=== PATIENT | male | born 1950 | race Caucasian/White ===

== ENCOUNTER 2016-04-21 06:21 | Day surgery (SDC) | payer MEDICARE, OTHER ==
[~2016-04-21] VITALS: Ht 180.3 cm; Wt 102.0 kg
[2016-04-21] VITALS (7 sets, daily range): BP systolic 97–137; BP diastolic 47–71; PULSE 53–63; TEMP 97.6–99.1
[~2016-04-21 06:21] MED LIST: AMOXICILLIN/CLA1 TA1 PO; BACTRIM DS 8001 TAB PO; CHOLESTEROL; CLEOCIN HC150 MG/CAP PO; FORT1000TA PO; ONGLYZA5 MG PO; ORAL DIABETES MED; PRINIVIL10 MG PO; SYNTHROID PO; SYNTHROID0.137 MG PO; ZOCOR 40MG40 MG PO
[2016-04-21] MEDS ORDERED: ONGLYZA5 MG PO (07:29)
[2016-04-21] MEDS ORDERED: ASPIRIN E.C. 8181 MG PO (07:29)
[2016-04-21] MEDS ORDERED: K-DUR 10 MEQ T10 MEQ PO (07:30)
[2016-04-21] MEDS ORDERED: NORCO 325 MG-7.1 TAB PO (09:32)
== END 2016-04-21 11:55 | disposition home or self-care (01) ==
LOC: SDCO 06:21
DX: K40.90 Unilateral inguinal hernia, without obstruction or gangrene, not specified as recurrent (principal); F17.200 Nicotine dependence, unspecified, uncomplicated; E11.9 Type 2 diabetes mellitus without complications; E03.9 Hypothyroidism, unspecified; I10 Essential (primary) hypertension; Z79.899 Other long term (current) drug therapy; Z79.84 Long term (current) use of oral hypoglycemic drugs; Z79.82 Long term (current) use of aspirin
CPT/HCPCS: C1781; J0690; J2704; J3010; J7030

== ENCOUNTER 2016-04-24 03:49 | Emergency (ER) | payer MEDICARE, OTHER ==
[~2016-04-24] VITALS: Ht 180.3 cm; Wt 101.8 kg
[~2016-04-24 03:49] MED LIST changes: +ASPIRIN E.C. 8181 MG PO; +K-DUR 10 MEQ T10 MEQ PO; +NORCO 325 MG-7.1 TAB PO
[2016-04-24 03:51] VITALS: TEMP 98
[2016-04-24 04:36] VITALS: BP 127/71; PULSE 78
== END 2016-04-24 04:36 | disposition home or self-care (01) ==
LOC: COL.ER 03:49
DX: M96.840 Postprocedural hematoma of a musculoskeletal structure following a musculoskeletal system procedure (principal)

== ENCOUNTER → 2018-05-20 | Outpatient (CLI) | payer MEDICARE, OTHER | LOC: COL.RAD 09:37 | DX: Z13.6 Encounter for screening for cardiovascular disorders (principal); F17.200 Nicotine dependence, unspecified, uncomplicated ==

== ENCOUNTER → 2021-06-17 | Outpatient (CLI) | payer MEDICARE, OTHER | LOC: COL.RAD 13:02 | DX: Z12.2 Encounter for screening for malignant neoplasm of respiratory organs (principal); Z87.891 Personal history of nicotine dependence ==